=== PATIENT | female | born 1950 | race African-American/Black ===

== ENCOUNTER 2020-01-18 14:19 | Emergency (ER) | payer MEDICAID ==
[~2020-01-18] VITALS: Ht 160 cm; Wt 91.0 kg
[2020-01-18] MEDS ORDERED: ACETAMINOPHEN WITH CODEINE 300/30MG TABLET PO STA (15:16)
[2020-01-18] MEDS ORDERED: AMLODIPINE 2.5MG TABLET PO ONE (16:15)
[2020-01-18 16:34] VITALS: BP 171/80
== END 2020-01-18 16:36 | disposition home or self-care (01) ==
LOC: ER 14:19
DX: S20.211A Contusion of right front wall of thorax, initial encounter (principal); E11.9 Type 2 diabetes mellitus without complications; E78.00 Pure hypercholesterolemia, unspecified; I10 Essential (primary) hypertension; V49.88XA Car occupant (driver) (passenger) injured in other specified transport accidents, initial encounter; Y93.89 Activity, other specified; Y92.89 Other specified places as the place of occurrence of the external cause; Y99.8 Other external cause status
CPT/HCPCS: 71045; 93005; 99283